=== PATIENT | male | born 1960 | race Caucasian/White ===

== ENCOUNTER 2017-04-17 11:17 | Outpatient (CLI) | payer OTHER ==
[2017-04-17 13:00] LABS: Hemoglobin 17.3 g/dL (14.0-18.0); Mean Corpuscular HGB CONC 33.4 g/dL (32.0-36.0); Mean Corpuscular Hemoglobin 33.6 pg (27.0-31.0); Mean Platelet Volume 7.5 fL (7.4-10.4); Platelet Count 158 thou/uL (130-400); RBC Distribution Width 12.8 % (11.5-14.5); Red Blood Cell (RBC) Count 5.16 mill/uL (4.70-6.10); White Blood Cell (WBC) Count 4.9 thou/uL (4.8-10.8)
[2017-04-17 13:15] LABS: ALT (SGPT) 30 U/L (8-55); AST (SGOT) 44 U/L (5-34); Albumin 3.8 g/dL (3.5-5.0); Alkaline Phosphatase 134 U/L (40-150); Anion Gap 11 mmol/L (10-20); BUN (Urea Nitrogen) 8 mg/dL (8.4-25.7); Bilirubin, Total 0.5 mg/dL (0.2-1.2); Calc. Creatinine Clearance 0 mL/min (70-130); Calcium 9.5 mg/dL (7.8-10.44); Carbon Dioxide 25 mmol/L (22-29); Chloride 103 mmol/L (98-107); Estimated GFR-MDRD Greater than 90; Globulin 3.5 g/dL (2.4-3.5); Glucose 96 mg/dL (70-105); Potassium 4.4 mmol/L (3.5-5.1); Protein, Total 7.3 g/dL (6.0-8.3); Sodium 135 mmol/L (136-145)
--- NOTE | 2017-04-17 14:38 | MRI ---
MRI OF THE ABDOMEN WITHOUT AND WITH CONTRAST: COMPARISON: CT abdomen/pelvis 06/12/16. HISTORY: Cirrhosis. Liver cysts. Hepatitis B. TECHNIQUE: Multiplanar, multisequence MR images were obtained in the abdomen without and with IV contrast. FINDINGS: The liver demonstrates a smooth contour without significant irregularity. No retroperitoneal varices are seen. The spleen is normal in size. There are 3 nonenhancing foci of high T2 signal in the liver measuring up to 9 mm in size which likel y represent simple cysts. No suspicious abnormal areas of enhancement are seen within the liver. The kidneys, adrenal glands, spleen, and pancreas are unremarkable. The gallbladder is unremarkable. No abdominal adenopathy is seen. No marrow signal abnormality is present. IMPRESSION: 1. Hepatic cysts. 2. There is a smooth contour of the liver and the liver does not appear cirrhotic at this time. POS: OFF
[2017-04-17 15:03] LABS: Hep B Surf Ag Reactive S/CO (NonReactive)
[2017-04-17 15:04] LABS: HBSAg Index 5575.76 S/CO (0-0.99)
[2017-04-18 11:19] LABS: Hep B Surface AG-Rflx Sendout Confirm. indicated (Negative)
[2017-04-19 18:09] LABS: HBV as IU/mL <10 IU/mL (.)
== END 2017-04-17 11:18 | disposition home or self-care (01) ==
LOC: MRI 11:17
PROVIDERS: ATTEND Internal Medicine Gastroenterology
DX: K74.60 Unspecified cirrhosis of liver (principal); B19.10 Unspecified viral hepatitis B without hepatic coma; K76.89 Other specified diseases of liver; R93.2 Abnormal findings on diagnostic imaging of liver and biliary tract
CPT/HCPCS: 36415; 74183; 80053; 82105; 85027; 86707; 87340; 87350; 87517

== ENCOUNTER 2019-11-02 14:29 | Outpatient (CLI) | payer OTHER ==
--- NOTE | 2019-11-02 15:06 | BD ---
EXAM: Bone densitometry using DEXA HISTORY: 58 yo male. Screening for osteoporosis FINDINGS: L1--bone mineral density 1.371 g/sq cm; T score 2.7 ; Z score 3.3 L2--bone mineral density 1.486 g/sq cm; T score 3.6 ; Z score 4.2 L3--bone mineral density 1.531 g/sq cm; T score 3.9 ; Z score 4.5 L4--bone mineral density 1.386 g/sq cm; T score 2.7 ; Z score 3.3 Total L1-L4--bone mineral density 1.442 g/sq cm; T score 3.2 ; Z score 3.8 Left femoral neck--bone mineral density0.804; T score -0.9 ; Z score 0.0 Total proximal left femur--bone mineral density 0.988; T score -0.3 ; Z score 0.1 IMPRESSION: Normal BMD
== END 2019-11-02 14:30 | disposition home or self-care (01) ==
LOC: BICMAMMO 14:29
PROVIDERS: ATTEND Family Medicine
DX: Z13.820 Encounter for screening for osteoporosis (principal)
CPT/HCPCS: 77080

== ENCOUNTER 2020-05-08 09:53 | Outpatient (CLI) | payer OTHER, MEDICAID ==
--- NOTE | 2020-05-08 11:12 | ULT ---
ULTRASOUND HEPATIC DOPPLER: Date: 05/08/2020 HISTORY: Hepatitis B. COMPARISON: MRI of abdomen dated 04/17/2017. FINDINGS: Real-time Russell scale and color and spectral analysis of the liver was performed. The aorta, IVC, and pancreas are not well seen. Mildly coarsened hepatic echotexture without mass evelina reciated. Portal vein is patent with antegrade flow. Hepatic arteries are patent, as well as the hepatic veins. Splenic artery and vein are patent. Likely calcified granuloma near the gallbladder fossa. Gallbladder wall thickness is normal. No tonio lithiasis or cholecystitis. Common bile duct is not dilated. Liver measures 16.1 cm in length. Spleen measures 9.9 cm in length. IMPRESSION: 1. Patent portal vein with antegrade flow. 2. Patent hepatic veins. 3. No cholelithiasis or cholecystitis. 4. Coarsened hepatic echotexture to suggest underlying cirrhosis without hepatic mass. POS: OFF
== END 2020-05-08 09:54 | disposition home or self-care (01) ==
LOC: BICULT 09:53
PROVIDERS: ATTEND Physician Assistant Medical
DX: B19.10 Unspecified viral hepatitis B without hepatic coma (principal); Z83.71 Family history of colonic polyps
CPT/HCPCS: 76705

== ENCOUNTER 2020-06-01 07:30 | Day surgery (SDC) | payer MEDICAID ==
[2020-05-18 14:35] VITALS: BMI 29.7
[2020-06-01] MEDS ORDERED: Fentanyl 100 MCG/2 ML VIAL ONE (07:40)
[2020-06-01] MEDS ORDERED: Lidocaine 1% PF 5 ML VIAL ONE (07:41)
[2020-06-01] MEDS ORDERED: Sodium Bicarbonate 2.5 MEQ/5 ML VIAL ONE (07:41)
[2020-06-01] MEDS ORDERED: Midazolam HCl 2 mg/2 ml Vial ONE (07:41)
[2020-06-01 08:02] LABS: #Eosinphils 0.5 thou/uL (0.0-0.7); #Monocytes 0.5 thou/uL (0.11-0.59); #Neutrophils 2.7 thou/uL (1.40-6.50); %Basophils 0.8 % (0.0-1.0); %Eosinophils 8.2 % (0.0-10.0); %Lymphocytes 35.4 % (21.0-51.0); %Monocytes 8.7 % (0.0-10.0); %Neutrophils 46.9 % (42.0-75.0); Hemoglobin 16.5 g/dL (14.0-18.0); Mean Corpuscular HGB CONC 35.2 g/dL (32.0-36.0); Mean Corpuscular Hemoglobin 34.3 pg (27.0-31.0); Mean Corpuscular Volume 97.6 fL (78.0-98.0); Mean Platelet Volume 7.3 fL (7.4-10.4); Platelet Count 170 thou/uL (130-400); RBC Distribution Width 11.9 % (11.5-14.5); White Blood Cell (WBC) Count 5.7 thou/uL (4.8-10.8)
[2020-06-01 08:08] LABS: INR-International Normal Ratio 1.1; PTT 29.7 sec (22.9-36.1); Prothrombin Time 13.9 sec (12.0-14.7)
[2020-06-01 09:35] VITALS: BP 125/82; TEMP 97.9
--- NOTE | 2020-06-01 14:52 | ULT ---
Liver biopsy random sonographic guided HISTORY: Hepatitis B. FINDINGS: After explaining the procedure and answering all questions, sonographic survey of the abdom en showed the left liver lobe to not protrude below the level of the xiphoid. A right lateral approach was therefore planned. Sterile technique, buffered local anesthesia, sonographic guidance, and a right lateral intercostal a pproach were used to carefully advance a 17-gauge trocar needle into the right liver lobe. Position confirmed with sonography. An 18-gauge 2 cm specimen was obtained and eventually submitted pathology for evaluation. Needle was removed. No evidence of complication. Patient tolerated the procedure well and was eventually dismissed in good condition. IMPRESSION : Technically successful sonographic guided random hepatic biopsy. Pathology is pending.
== END 2020-06-01 09:31 | disposition home or self-care (01) ==
LOC: ULT 07:30
PROVIDERS: ATTEND Physician Assistant Medical
PROC: 0FB03ZX Excision of Liver, Percutaneous Approach, Diagnostic (ICD-10-PCS; principal; 2020-06-01)
DX: B19.10 Unspecified viral hepatitis B without hepatic coma (principal); K74.60 Unspecified cirrhosis of liver; F10.11 Alcohol abuse, in remission; F15.11 Other stimulant abuse, in remission; M86.9 Osteomyelitis, unspecified; G89.29 Other chronic pain; M54.2 Cervicalgia; M54.9 Dorsalgia, unspecified; Z91.030 Bee allergy status
CPT/HCPCS: 47000; 76942; 85025; 85610; 85730; 88307; 88313; J2250; J3010

== ENCOUNTER 2021-05-03 09:40 | Outpatient (CLI) | payer OTHER | END 2021-05-03 09:41 | disposition home or self-care (01) | LOC: BICCT 09:40 | PROVIDERS: ATTEND Specialist | DX: R10.31 Right lower quadrant pain (principal); K42.9 Umbilical hernia without obstruction or gangrene; K76.89 Other specified diseases of liver | CPT/HCPCS: 74177 ==

== ENCOUNTER 2021-05-25 11:06 | Outpatient (CLI) | payer OTHER ==
[2021-05-25 12:24] LABS: #Basophils 0.1 10x3/uL (0.0-0.2); #Eosinphils 0.3 10x3/uL (0.0-0.5); #Monocytes 0.6 10x3/uL (0.0-1.1); #Neutrophils 3.4 10x3/uL (1.5-8.4); %Basophils 0.9 % (0.0-2.0); %Eosinophils 4.9 % (0.0-6.0); %Lymphocytes 33.3 % (18.0-47.0); %Neutrophils 51.7 % (40.0-75.0); Hemoglobin 16.4 g/dL (13.5-17.5); Mean Corpuscular HGB CONC 34.2 g/dL (32.0-36.0); Mean Corpuscular Hemoglobin 31.8 pg (27.0-33.0); Mean Corpuscular Volume 93.2 fl (81.2-95.1); Mean Platelet Volume 9.6 fl (7.4-10.4); Platelet Count 225 10x3/uL (150-450); RBC Distribution Width 13.2 % (11.5-14.5); Red Blood Cell (RBC) Count 5.15 10x6/uL (4.32-5.72); White Blood Cell (WBC) Count 6.6 10x3/uL (3.5-10.5)
[2021-05-25 12:40] LABS: Anion Gap 15 mmol/L (10-20); BUN (Urea Nitrogen) 21 mg/dL (8.4-25.7); Calc. Creatinine Clearance 0 mL/min (70-130); Calcium 9.3 mg/dL (7.8-10.44); Carbon Dioxide 23 mmol/L (23-31); Chloride 106 mmol/L (98-107); Glucose 91 mg/dL (80-115); Potassium 4.6 mmol/L (3.5-5.1); Sodium 139 mmol/L (136-145)
== END 2021-05-25 11:07 | disposition home or self-care (01) ==
LOC: LABBT 11:06
PROVIDERS: ATTEND Specialist
DX: Z01.812 Encounter for preprocedural laboratory examination (principal); K42.9 Umbilical hernia without obstruction or gangrene
CPT/HCPCS: 80048; 85025

== ENCOUNTER 2021-10-26 08:51 | Outpatient (CLI) | payer OTHER | END 2021-10-26 08:52 | disposition home or self-care (01) | LOC: BICULT 08:51 | PROVIDERS: ATTEND Physician Assistant Medical | DX: B19.10 Unspecified viral hepatitis B without hepatic coma (principal); K74.60 Unspecified cirrhosis of liver | CPT/HCPCS: 76705 ==

== ENCOUNTER 2023-03-06 10:17 | Outpatient (CLI) | payer OTHER | END 2023-03-06 10:18 | disposition home or self-care (01) | LOC: BICULT 10:17 | PROVIDERS: ATTEND Physician Assistant Medical | DX: B19.10 Unspecified viral hepatitis B without hepatic coma (principal) | CPT/HCPCS: 76700 ==

== ENCOUNTER 2023-09-23 21:53 | Inpatient (IN) | payer OTHER ==
[~2023-09-23 21:53] MED LIST: Iopamidol 370 76% 100 ML VIAL ONE
[2023-09-23] MEDS ORDERED: Morphine 4 MG/ML VIAL ONE (22:05)
[2023-09-23] MEDS ORDERED: CEFAZOLIN 1 GM VIAL ONE (22:05)
[2023-09-23] MEDS ORDERED: Sodium Chloride 0.9% 100 ML ONE (22:06)
[2023-09-23] MEDS ORDERED: Ondansetron PF 4 MG/2 ML Vial ONE (22:06)
[2023-09-23] MEDS ORDERED: Ondansetron PF 4 MG/2 ML Vial IVP PRN (22:16)
[2023-09-23] MEDS ORDERED: Ipratropium/Albuterol 3 ML NEB NEB PRN (22:16)
[2023-09-23] MEDS ORDERED: traMADol HCl 50 MG TAB PO PRN (22:17)
[2023-09-23] MEDS ORDERED: Cyclobenzaprine 10 MG TAB PO PRN (22:17)
[2023-09-23 22:30] LABS: #Basophils 0.04 10x3/uL (0.0-0.2); %Basophils 0.4 % (0.0-1.0); %Eosinophils 3.4 % (0.0-10.0); %Lymphocytes 25.3 % (21.0-51.0); %Monocytes 7.5 % (0.0-10.0); Hematocrit 44.3 % (42.0-52.0); Hemoglobin 15.1 g/dL (14.0-18.0); Mean Corpuscular HGB CONC 34.1 g/dL (32.0-36.0); Mean Corpuscular Hemoglobin 32.8 pg (27.0-31.0); Mean Corpuscular Volume 96.3 fL (78.0-98.0); Mean Platelet Volume 9.6 fL (7.4-10.4); Platelet Count 165 10x3/uL (130-400); RBC Distribution Width 13.1 % (11.5-14.5)
[2023-09-23 22:44] LABS: INR-International Normal Ratio 1.1; PTT 26.8 sec (22.9-36.1); Prothrombin Time 14.4 sec (12.0-14.7)
[2023-09-23 22:52] LABS: Alcohol 96.5 mg/dL (Less than 10)
[2023-09-23 22:55] LABS: ALT (SGPT) 18 U/L (8-55); AST (SGOT) 41 U/L (5-34); Alkaline Phosphatase 52 U/L (40-110); Anion Gap 19 mmol/L (10-20); BUN (Urea Nitrogen) 17 mg/dL (8.4-25.7); Bilirubin, Total 0.5 mg/dL (0.2-1.2); Calc. Creatinine Clearance 0 mL/min (70-130); Calcium 8.8 mg/dL (7.8-10.44); Carbon Dioxide 18 mmol/L (23-31); Chloride 102 mmol/L (98-107); Estimated GFR 83; Globulin 3.4 g/dL (2.4-3.5); Glucose 86 mg/dL (80-115); Potassium 3.4 mmol/L (3.5-5.1); Protein, Total 7.4 g/dL (5.8-8.1); Sodium 136 mmol/L (136-145)
[2023-09-23] MEDS ORDERED: KETAMINE 100 MG/ML (5ML VIAL) ONE (23:14)
[2023-09-23] MEDS: Ketorolac Tromethamine 30 MG (1 mL) VIAL IVP SCH (23:55)
[2023-09-24] MEDS: Ketorolac Tromethamine 30 MG (1 mL) VIAL IVP SCH (03:44)
[2023-09-24] MEDS: Sodium Chloride 0.9% 1,000 ML IV SCH (03:45)
[2023-09-24] MEDS: traMADol HCl 50 MG TAB PO SCH (04:10)
[2023-09-24] MEDS: Acetaminophen 325 MG TAB PO SCH (04:10)
[2023-09-24 04:14] VITALS: BMI 27.4
[2023-09-24 05:48] LABS: #Basophils 0.03 10x3/uL (0.0-0.2); #Eosinphils Less than 0.03 10x3/uL (0.0-0.7); %Basophils 0.3 % (0.0-1.0); %Eosinophils 0.1 % (0.0-10.0); %Lymphocytes 9.4 % (21.0-51.0); %Monocytes 8.3 % (0.0-10.0); %Neutrophils 81.6 % (42.0-75.0); Hematocrit 39.4 % (42.0-52.0); Hemoglobin 13.6 g/dL (14.0-18.0); Mean Corpuscular HGB CONC 34.5 g/dL (32.0-36.0); Mean Corpuscular Hemoglobin 32.5 pg (27.0-31.0); Mean Corpuscular Volume 94.3 fL (78.0-98.0); Mean Platelet Volume 9.8 fL (7.4-10.4); Platelet Count 165 10x3/uL (130-400); Red Blood Cell (RBC) Count 4.18 mill/uL (4.70-6.10)
[2023-09-24] MEDS: CEFAZOLIN 1 GM in Sodium Chloride 0.9% 100 ML IVPB SCH (05:50)
[2023-09-24 06:06] LABS: INR-International Normal Ratio 1.2; PTT 28.8 sec (22.9-36.1); Prothrombin Time 14.9 sec (12.0-14.7)
[2023-09-24 06:14] LABS: Anion Gap 17 mmol/L (10-20); BUN (Urea Nitrogen) 13 mg/dL (8.4-25.7); Calc. Creatinine Clearance 125 mL/min (70-130); Calcium 8.1 mg/dL (7.8-10.44); Carbon Dioxide 18 mmol/L (23-31); Chloride 104 mmol/L (98-107); Estimated GFR 99; Glucose 112 mg/dL (80-115); Potassium 4.2 mmol/L (3.5-5.1); Sodium 135 mmol/L (136-145)
[2023-09-24] MEDS: Famotidine/PF 20 mg/2ml Vial SLOW IVP SCH (08:52)
[2023-09-24] MEDS: Morphine 2 MG/ML VIAL SLOW IVP PRN (08:52)
[2023-09-24 09:59] LABS: Amphetamine Not Detected (NotDetected); Barbiturates Screen Not Detected (NotDetected); Benzodiazepine Screen Not Detected (NotDetected); Cocaine Metabolite Screen Not Detected (NotDetected); Methadone Not Detected (NotDetected); Methamphetamine Not Detected (NotDetected); Opiate Screen Detected (NotDetected); Oxycodone Screen Not Detected (NotDetected); Phencyclidine (PCP) Not Detected (NotDetected); THC/Cannabinoid Screen Not Detected (NotDetected); Tricyclic Screen Not Detected (NotDetected)
[2023-09-24] MEDS ORDERED: fentaNYL PF 100 MCG/2 ML SYRINGE ONE (11:57)
[2023-09-24] MEDS ORDERED: Rocuronium Bromide 10 MG/ML (10ML VIAL) ONE (11:57)
[2023-09-24] MEDS ORDERED: Ondansetron PF 4 MG/2 ML Vial ONE (11:57)
[2023-09-24] MEDS ORDERED: Lidocaine 1% PF 5 ML VIAL ONE (11:57)
[2023-09-24] MEDS ORDERED: PROPOFOL 20 ML ONE (11:57)
[2023-09-24] MEDS ORDERED: Dexamethasone 4 mg/ml Vial ONE (11:57)
[2023-09-24] MEDS ORDERED: SUGAMMADEX SODIUM 200 MG/2 ML VIAL ONE (11:58)
[2023-09-24] MEDS ORDERED: Sodium Chloride 0.9% 100 ML ONE (12:02)
[2023-09-24] MEDS ORDERED: CEFAZOLIN 2 GM VIAL ONE (12:02)
[2023-09-24] MEDS ORDERED: ePHEDrine Sulfate 50 MG/10 ML VIAL ONE (12:29)
[2023-09-24] MEDS ORDERED: fentaNYL 50 mcg/mL 1 mL Vial ONE (14:29)
[2023-09-24] MEDS: CEFAZOLIN 2 GM in Sodium Chloride 0.9% 100 ML IVPB SCH (21:38)
[2023-09-25 07:45] LABS: #Basophils Less than 0.03 10x3/uL (0.0-0.2); #Eosinphils Less than 0.03 10x3/uL (0.0-0.7); %Basophils 0.2 % (0.0-1.0); %Eosinophils 0.2 % (0.0-10.0); %Lymphocytes 17.4 % (21.0-51.0); %Monocytes 9.4 % (0.0-10.0); %Neutrophils 72.6 % (42.0-75.0); Hematocrit 37.2 % (42.0-52.0); Hemoglobin 12.5 g/dL (14.0-18.0); Mean Corpuscular HGB CONC 33.6 g/dL (32.0-36.0); Mean Corpuscular Hemoglobin 33.4 pg (27.0-31.0); Mean Corpuscular Volume 99.5 fL (78.0-98.0); Mean Platelet Volume 9.7 fL (7.4-10.4); Platelet Count 155 10x3/uL (130-400); RBC Distribution Width 13.1 % (11.5-14.5); Red Blood Cell (RBC) Count 3.74 mill/uL (4.70-6.10)
[2023-09-25] MEDS: Senokot S 8.6-50 MG TAB PO SCH (08:35)
[2023-09-25] MEDS: Enoxaparin 40 MG (0.4 mL) SYRINGE SC SCH (08:35)
[2023-09-25] MEDS: Lactulose 20 GM (30 mL) UDCUP PO SCH (19:42)
[2023-09-26] MEDS: Ibuprofen 600 MG TAB PO PRN (09:45)
[2023-09-27 08:03] VITALS: TEMP 98.2
[2023-09-27 11:29] VITALS: BP 150/91
== END 2023-09-27 16:15 | disposition home or self-care (01) | DRG 492 ==
LOC: ERS 21:53 → SURG A 23:37
PROVIDERS: ADMIT Surgery; ATTEND Surgery
PROC: 0QSH06Z Reposition Left Tibia with Intramedullary Internal Fixation Device, Open Approach (ICD-10-PCS; principal; 2023-09-24)
DX: S82.302B Unspecified fracture of lower end of left tibia, initial encounter for open fracture type I or II (principal); S82.402B Unspecified fracture of shaft of left fibula, initial encounter for open fracture type I or II; B19.10 Unspecified viral hepatitis B without hepatic coma; S22.019A Unspecified fracture of first thoracic vertebra, initial encounter for closed fracture; F10.129 Alcohol abuse with intoxication, unspecified; S82.832A Other fracture of upper and lower end of left fibula, initial encounter for closed fracture; S00.03XA Contusion of scalp, initial encounter; S40.811A Abrasion of right upper arm, initial encounter; S60.512A Abrasion of left hand, initial encounter; S70.312A Abrasion, left thigh, initial encounter; Z90.49 Acquired absence of other specified parts of digestive tract; Z98.1 Arthrodesis status; V29.99XA Rider (driver) (passenger) of other motorcycle injured in unspecified traffic accident, initial encounter; Z88.8 Allergy status to other drugs, medicaments and biological substances; Z79.899 Other long term (current) drug therapy
CPT/HCPCS: 27752; 36415; 70450; 71260; 72125; 72170; 74177; 80048; 80053; 80306; 80307; 85025; 85610; 85730; 86850; 86900; 86901; 93005; 96374; 96375; 99152; C1713; C1769; G0390; J0690; J1100; J1650; J1885; J2270; J2272; J2405; J2704; J3010; J3490; J7050; Q9967; S0028